=== PATIENT | male | born 1975 | race Caucasian/White ===

== ENCOUNTER 2019-06-06 19:46 | Emergency (ER) | payer BC ==
[~2019-06-06] VITALS: Ht 180.3 cm; Wt 82.0 kg
[2019-06-06 19:51] VITALS: BP 140/96
--- NOTE | 2019-06-06 20:16 | NUR ---
PT STS FELEING MORE STRESSED AT WORK AND WITH RELATIONSHIPS. PT APPEARS ANXIOUS, TREMORS AND SPEAKING RAPIDLY. PT STS UNABLE TO SLEEP FOR A MONTH HAS TRIED OTC AND NOT HELPING. PT STS JUST FEELS ANXIOUS ALL THE TIME AND CAN'T RELAX BUT DOES NOT WANT MEDICATION HERE BECAUSE HE WANTS TO DRIVE HOME SAFELY.
--- NOTE | 2019-06-06 20:16 | NUR ---
PA AT BEDSIDE TO ASSESS PT.
--- NOTE | 2019-06-06 20:28 | NUR ---
MD AT BEDSIDE TO DISCUSS POC WITH PT
== END 2019-06-06 20:48 | disposition home or self-care (01) ==
LOC: ED 20:42
DX: F43.0 Acute stress reaction (principal)
CPT/HCPCS: 99283